=== PATIENT | male | born 1960 | race Caucasian/White ===

== ENCOUNTER → 2021-01-30 | Outpatient (CLI) | payer OTHER ==
[~2021-01-30] MED LIST: DILAUDID2 MG PO; FLOMAX0.4 MG PO; HIGH BLOOD PRESSURE PO; OMEPRAZOLE40 MG PO; ZOFRAN4 MG PO
== END ==
LOC: M.ULTRA 07:43
PROVIDERS: ATTEND Family Medicine
DX: N28.1 Cyst of kidney, acquired (principal); N28.9 Disorder of kidney and ureter, unspecified; E78.5 Hyperlipidemia, unspecified; K21.9 Gastro-esophageal reflux disease without esophagitis; N13.30 Unspecified hydronephrosis

== ENCOUNTER → 2021-03-21 | Outpatient (CLI) | payer OTHER | LOC: M.ULTRA 09:13 | PROVIDERS: ATTEND Family Medicine | DX: N28.1 Cyst of kidney, acquired (principal); N13.30 Unspecified hydronephrosis; I16.9 Hypertensive crisis, unspecified ==

== ENCOUNTER → 2021-04-04 | Outpatient (CLI) | payer OTHER | LOC: M.CT 09:51 | DX: N20.0 Calculus of kidney (principal); N13.39 Other hydronephrosis; N13.4 Hydroureter; N28.1 Cyst of kidney, acquired ==

== ENCOUNTER 2021-09-20 11:20 | Emergency (ER) | payer BC ==
[~2021-09-20] VITALS: Ht 177.8 cm; Wt 90.7 kg
[2021-09-20] MEDS ORDERED: NORVASC5 MG PO (12:27)
[2021-09-20] MEDS ORDERED: HYDRALAZINE 5050 MG PO (12:27)
[2021-09-20] MEDS ORDERED: CARVEDILOL12.5 MG PO (12:28)
[2021-09-20] MEDS ORDERED: TOPAMAX50 MG PO (12:29)
[2021-09-20 12:33] LABS: ABSOLUTE LYMPHOCYTES 1.3 thou/uL (0.8-5.3); ABSOLUTE MONOCYTES 0.6 thou/uL (0.0-1.2); BASOPHILS 0.3 %; EOSINOPHILS 0.1 %; HEMATOCRIT 36.8 % (42.0-52.0); HEMOGLOBIN 12.2 gm/dL (14.0-18.0); LYMPHOCYTES 11.1 %; MCHC 33.2 g/dL (28.0-37.0); MCV 87.4 fL (80.0-100.0); MONOCYTES 5.2 %; NUCLEATED RBCS 0 /100WBC; PLATELET COUNT* 330 thou/uL (150-400); POLYS 83.3 %; RBC 4.21 mil/uL (4.50-6.00); RDW-CV 14.2 % (10.5-14.5)
[2021-09-20 12:43] LABS: CALCIUM 9.1 mg/dL (8.5-10.1); CREATININE 1.8 mg/dL (0.6-1.3); POTASSIUM 5.1 mmol/L (3.5-5.1)
[2021-09-20 12:47] LABS: ALBUMIN 3.9 g/dL (3.4-5.0); TOTAL BILIRUBIN 0.7 mg/dL (<0.1-1.0); TOTAL PROTEIN 7.2 g/dL (6.4-8.2)
[2021-09-20] MEDS ORDERED: PROTONIX40 MG PO (12:48)
[2021-09-20] MEDS ORDERED: ZOFRAN ODT4 MG PO (12:48)
[2021-09-20 14:05] VITALS: BP 157/80
== END 2021-09-20 14:06 | disposition home or self-care (01) ==
LOC: M.ERS 11:20
PROVIDERS: Emergency Medicine
DX: K92.0 Hematemesis (principal); I10 Essential (primary) hypertension; K21.9 Gastro-esophageal reflux disease without esophagitis; Z79.899 Other long term (current) drug therapy; Z88.0 Allergy status to penicillin